=== PATIENT | female | born 1965 | race African-American/Black ===

== ENCOUNTER 2019-11-10 03:56 | Emergency (ER) | payer SELFPAY ==
[~2019-11-10] VITALS: Ht 152.4 cm; Wt 98.9 kg
[~2019-11-10 03:56] MED LIST: ALBU2.5V8 INH; PRED50TA PO
--- NOTE | 2019-11-10 04:35 | PHYS DOC ---
Past Medical History Past Medical History: Hypertension Past Surgical History: No Surgical History Alcohol Use: None Drug Use: None Adult General Chief Complaint Chief Complaint: HYPERTENSION HPI HPI 54-year-old female presents to the emergency Department complaints of elevated blood pressure, headache. Patient denies any nausea, vomiting, chest pain, shortness of breath, abdominal pain. She states she relocated here in 2018 she's been out of medications for at least 6 months if not longer. Patient's blood pressure is 212/102. Review of Systems Review of Systems Constitutional: Denies fever or chills [] Respiratory: Denies cough or shortness of breath [] Cardiovascular: No additional information not addressed in HPI [] GI: Denies abdominal pain, nausea, vomiting, bloody stools or diarrhea [] Musculoskeletal: Denies back pain or joint pain [] Neurologic: + headache, no focal weakness or sensory changes [] All other systems were reviewed and found to be within normal limits, except as documented in this note. Current Medications Current Medications Current Medications Medications (Trade) Dose Ordered Sig/[facility] Start Time Stop Time Status Last Admin Dose Admin Acetaminophen (Tylenol) 1,000 mg 1X ONCE 11/10/19 05:00 11/10/19 05:01 DC 11/10/19 05:01 1,000 MG Labetalol HCl (Normodyne Iv Push) 10 mg 1X ONCE 11/10/19 05:00 11/10/19 05:01 DC 11/10/19 05:02 10 MG Allergies Allergies Allergies Coded Allergies Type Severity Reaction Last Updated Verified No Known Drug Allergies 11/27/18 No Physical Exam Physical Exam Constitutional: Well developed, well nourished, no acute distress, non-toxic appearance. [] HENT: Normocephalic, atraumatic, bilateral external ears normal, oropharynx moist, no oral exudates, nose normal. [] Eyes: PERRLA, EOMI, conjunctiva normal, no discharge. [] Cardiovascular:Heart rate regular rhythm, no murmur [] Lungs & Thorax: Bilateral breath sounds clear to auscultation [] Abdomen: Bowel sounds normal, soft, no tenderness, no masses, no pulsatile masses. [] Skin: Warm, dry, no erythema, no rash. [] Back: No tenderness, no CVA tenderness. [] Extremities: No tenderness, no edema. [] Neurologic: Alert and oriented X 3, no focal deficits noted. [] Psychologic: Affect normal, judgement normal, mood normal. [] Current Patient Data Vital Signs Vital Signs Date Time Temp Pulse Resp B/P (MAP) Pulse Ox O2 Delivery O2 Flow Rate FiO2 11/10/19 05:02 71 208/102 11/10/19 04:20 98.0 16 98 Room Air 98.0 Lab Values Laboratory Tests Test 11/10/19 04:35 White Blood Count 8.3 x10^3/uL (4.0-11.0) Red Blood Count 3.96 x10^6/uL (3.50-5.40) Hemoglobin 11.7 g/dL (12.0-15.5) L Hematocrit 34.7 % (36.0-47.0) L Mean Corpuscular Volume 88 fL (79-100) Mean Corpuscular Hemoglobin 30 pg (25-35) Mean Corpuscular Hemoglobin Concent 34 g/dL (31-37) Red Cell Distribution Width 13.7 % (11.5-14.5) Platelet Count 412 x10^3/uL (140-400) H Neutrophils (%) (Auto) 45 % (31-73) Lymphocytes (%) (Auto) 46 % (24-48) Monocytes (%) (Auto) 8 % (0-9) Eosinophils (%) (Auto) 1 % (0-3) Basophils (%) (Auto) 1 % (0-3) Neutrophils # (Auto) 3.8 x10^3/uL (1.8-7.7) Lymphocytes # (Auto) 3.8 x10^3/uL (1.0-4.8) Monocytes # (Auto) 0.6 x10^3/uL (0.0-1.1) Eosinophils # (Auto) 0.1 x10^3/uL (0.0-0.7) Basophils # (Auto) 0.1 x10^3/uL (0.0-0.2) Sodium Level 140 mmol/L (136-145) Potassium Level 3.5 mmol/L (3.5-5.1) Chloride Level 103 mmol/L (98-107) Carbon Dioxide Level 30 mmol/L (21-32) Anion Gap 7 (6-14) Blood Urea Nitrogen 13 mg/dL (7-20) Creatinine 0.9 mg/dL (0.6-1.0) Estimated GFR (Cockcroft-Gault) 79.0 BUN/Creatinine Ratio 14 (6-20) Glucose Level 86 mg/dL (70-99) Calcium Level 8.9 mg/dL (8.5-10.1) Total Bilirubin 0.6 mg/dL (0.2-1.0) Aspartate Amino Transferase (AST) 13 U/L (15-37) L Alanine Aminotransferase (ALT) 14 U/L (14-59) Alkaline Phosphatase 76 U/L (46-116) Total Protein 7.8 g/dL (6.4-8.2) Albumin 3.8 g/dL (3.4-5.0) Albumin/Globulin Ratio 1.0 (1.0-1.7) Laboratory Tests 11/10/19 04:35 Laboratory Tests 11/10/19 04:35 EKG EKG [] Radiology/Procedures Radiology/Procedures [] Course & Med Decision Making Course & Med Decision Making Pertinent Labs and Imaging studies reviewed. (See chart for details) []54-year-old female presents to the emergency Department complaints of elevated blood pressure, headache. Patient denies any nausea, vomiting, chest pain, shortness of breath, abdominal pain. She states she relocated here in 2018 she's been out of medications for at least 6 months if not longer. Patient's blood pressure is 212/102. Labetalol 10mg IV x 1 - 180/86 at reassessment CBC/CMP reviewed - normal Recommend dc home with follow up as an outpatient Rx provided for BP medications upon discharge Discussed findings with patient Dawson Disclaimer Dragshadi Disclaimer This electronic medical record was generated, in whole or in part, using a voice recognition dictation system. Departure Departure Impression: Primary Impression: Accelerated hypertension Disposition: HOME, SELF-CARE Condition: IMPROVED Referrals: NO PCP (PCP) Patient Instructions: Hypertension Additional Instructions: Recommend follow up with PCP 3 - 5 days Return to the ER with worsening symptoms, intractable pain, fever, altered mental status Tylenol/Motrin as needed for pain Triamterene/HCTZ rx provided upon discharge Scripts Triamterene/Hydrochlorothiazid (TRIAMTERENE-HCTZ 37.5-25 MG CP) 1 Each Capsule 1 CAP PO DAILY, #90 CAP 1 Refill Prov: MADNY WHITE MD 11/10/19 MANDY WHITE MD Nov 10, 2019 04:35
[2019-11-10 04:58] LABS: BASO # 0.1 x10^3/uL (0.0-0.2); BASO % 1 % (0-3); EOS # 0.1 x10^3/uL (0.0-0.7); EOS % 1 % (0-3); HEMATOCRIT 34.7 % (36.0-47.0); HEMOGLOBIN 11.7 g/dL (12.0-15.5); LYMPH # 3.8 x10^3/uL (1.0-4.8); LYMPH % 46 % (24-48); MEAN CORPUSCULAR HEMOGLOBIN 30 pg (25-35); MEAN CORPUSCULAR HGB CONC 34 g/dL (31-37); MEAN CORPUSCULAR VOLUME 88 fL (79-100); MONO # 0.6 x10^3/uL (0.0-1.1); MONO % 8 % (0-9); NEUT # 3.8 x10^3/uL (1.8-7.7); NEUT % 45 % (31-73); PLATELET COUNT 412 x10^3/uL (140-400); RED BLOOD COUNT 3.96 x10^6/uL (3.50-5.40); RED CELL DISTRIBUTION WIDTH 13.7 % (11.5-14.5); WHITE BLOOD COUNT 8.3 x10^3/uL (4.0-11.0)
[2019-11-10] MEDS ORDERED: LABETALOL 20 MG/4 ML DISP.SYRIN. IVP ONE (05:00)
[2019-11-10] MEDS ORDERED: ACETAMINOPHEN 500 MG TABLET PO ONE (05:00)
[2019-11-10 05:05] LABS: CALCIUM 8.9 mg/dL (8.5-10.1); CREATININE 0.9 mg/dL (0.6-1.0); POTASSIUM 3.5 mmol/L (3.5-5.1)
[2019-11-10 05:10] LABS: ALBUMIN 3.8 g/dL (3.4-5.0); TOTAL BILIRUBIN 0.6 mg/dL (0.2-1.0); TOTAL PROTEIN 7.8 g/dL (6.4-8.2)
[2019-11-10] MEDS ORDERED: TRIA1CAP3 PO (05:22)
[2019-11-10 05:35] VITALS: BP 148/80
== END 2019-11-10 06:01 | disposition home or self-care (01) ==
LOC: ER 03:56
DX: I10 Essential (primary) hypertension (principal); R51 Headache
CPT/HCPCS: 36415; 80053; 85025; 96374; 99284; J3490